=== PATIENT | female | born 1995 | race Caucasian/White ===

== ENCOUNTER 2017-11-21 10:13 | Emergency (ER) | payer OTHER ==
[2017-11-21 10:17] VITALS: BP 121/83
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
== END 2017-11-21 10:53 | disposition home or self-care (01) ==
LOC: ED 10:13
DX: T14.90XA Injury, unspecified, initial encounter (principal); V43.62XA Car passenger injured in collision with other type car in traffic accident, initial encounter; Y92.410 Unspecified street and highway as the place of occurrence of the external cause; Z87.891 Personal history of nicotine dependence
CPT/HCPCS: 99282

== ENCOUNTER 2018-07-07 13:47 | Emergency (ER) | payer OTHER ==
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
[2018-07-07 16:30] VITALS: BP 131/82
== END 2018-07-07 16:29 | disposition home or self-care (01) ==
LOC: ED 13:47
DX: F43.20 Adjustment disorder, unspecified (principal); Z87.891 Personal history of nicotine dependence
CPT/HCPCS: 99284